=== PATIENT | male | born 2000 | race Caucasian/White ===

== ENCOUNTER 2019-06-22 14:03 | Emergency (ER) | payer OTHER ==
[~2019-06-22] VITALS: Ht 177.8 cm; Wt 106.6 kg
[2019-06-22] MEDS ORDERED: LIDOCAINE 1% MDV 20ML VIAL SC ONE (14:45)
[2019-06-22] MEDS ORDERED: KEFL500C17 PO (15:45)
[2019-06-22 15:52] VITALS: BP 147/78
== END 2019-06-22 16:13 | disposition home or self-care (01) ==
LOC: M ED 14:03
DX: S61.215A Laceration without foreign body of left ring finger without damage to nail, initial encounter (principal); S61.217A Laceration without foreign body of left little finger without damage to nail, initial encounter; W26.0XXA Contact with knife, initial encounter; Y92.89 Other specified places as the place of occurrence of the external cause; Y99.0 Civilian activity done for income or pay; F17.210 Nicotine dependence, cigarettes, uncomplicated